=== PATIENT | male | born 1995 | race Caucasian/White ===

== ENCOUNTER 2021-08-03 13:05 | Emergency (ER) | payer SELFPAY ==
[~2021-08-03] VITALS: Ht 182.9 cm; Wt 113.4 kg
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
--- NOTE | 2021-08-03 13:48 | NUR ---
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
[2021-08-03] MEDS ORDERED: IBUP-1955 PO (14:10)
--- NOTE | 2021-08-03 14:21 | NUR ---
Patient discharged to home in stable condition. Written and verbal after care instructions given. Patient verbalizes understanding of instruction.
[2021-08-03 14:22] VITALS: BP 119/94
== END 2021-08-03 14:23 | disposition home or self-care (01) ==
LOC: ER 13:05
DX: S63.591A Other specified sprain of right wrist, initial encounter (principal); S63.592A Other specified sprain of left wrist, initial encounter; V49.59XA Passenger injured in collision with other motor vehicles in traffic accident, initial encounter; Y93.89 Activity, other specified; Y92.413 State road as the place of occurrence of the external cause; Y99.8 Other external cause status
CPT/HCPCS: 73110

== ENCOUNTER 2023-10-24 11:19 | Emergency (ER) | payer OTHER ==
[~2023-10-24] VITALS: Ht 182.9 cm; Wt 117.5 kg
[~2023-10-24 11:19] MED LIST: IBUP-1955 PO
[2023-10-24 11:31] VITALS: BP 137/66; TEMP 98.7; O2SAT 100
== END 2023-10-24 12:15 | disposition home or self-care (01) ==
LOC: ER 11:22
DX: M20.031 Swan-neck deformity of right finger(s) (principal); M67.843 Other specified disorders of tendon, right hand; Z79.1 Long term (current) use of non-steroidal anti-inflammatories (NSAID)
CPT/HCPCS: 73140-TC